=== PATIENT | male | born 1980 | race Caucasian/White ===

== ENCOUNTER 2024-11-08 04:22 | Inpatient (IN) | payer OTHER, SELFPAY ==
[2024-11-08] VITALS (31 sets, daily range): BP systolic 111–149; BP diastolic 75–108; PULSE 84–238; RESP 12–27; TEMP 36.6–37.4; O2SAT 94–99; BMI 30.5; BMI 30.4
--- NOTE | 2024-11-08 04:29 | EKG_ITS ---
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
--- NOTE | 2024-11-08 04:50 | PD.EDRME ---
Rapid Medical Screening Exam [facility] Arrival date/time: 11/08/24 04:22 Chief Complaint: Abdominal Pain Vital signs: Vital Signs Temperature 98 F 11/08/24 04:29 Pulse Rate 135 H 11/08/24 04:29 Respiratory Rate 18 11/08/24 04:29 Blood Pressure 146/93 H 11/08/24 04:29 Pulse Oximetry (%) 96 11/08/24 04:29 Oxygen Delivery Method Room Air 11/08/24 04:29 [facility] Narrative: 43-year-old male with a history of type 2 diabetes and pancreatitis in the past from alcohol abuse presents with a 6-day history of epigastric abdominal pain with nausea and vomiting. He has been compliant with his medications. He is on Ozempic. He has not drink alcohol for years. This pain feels very similar to when he had pancreatitis in the past. Patient denies other medical problems other than the possibility of hypertension in the past but currently does not take medication for hypertension.
--- NOTE | 2024-11-08 04:53 | EKG_ITS ---
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
--- NOTE | 2024-11-08 04:53 | XR_ITS ---
Examination: AP chest single view Technique one AP portable upright chest single view Date and time: November 08 thousand 25, 0503 hrs. Indications: Chest pain beginning 2 days ago. Findings: Normal heart size. Lungs are clear. The osseous structures are intact. Impression: No active disease.
[2024-11-08] MEDS: SODIUM CHLORIDE 0.9% 1000 ML 1,000 ML 999 ML IV ×2 (04:57→06:02)
[2024-11-08] MEDS: MORPHINE SULF INJ 4 MG/ML VIAL IVP (05:00)
[2024-11-08] MEDS: ONDANSETRON INJ 2 MG/ML INJ 2 ML 4 MG IVP ×4 (05:01→23:18)
[2024-11-08 05:19] LABS: Basophils # (Auto) 0.1 Thou/mm3 (0.0-0.2); Basophils % (Auto) 0 % (0-2.5); Eosinophils # (Auto) 0.0 Thou/mm3 (0.0-0.5); Eosinophils % (Auto) 0 % (0-10); Hematocrit 52.2 % (41.0-53.0); Hemoglobin 18.3 g/dL (13.5-16.0); Immature Granulocytes Auto 0.16 Thou/mm3 (0.00-0.00); Lymphocytes # (Auto) 0.6 Thou/mm3 (1.0-4.8); Lymphocytes % (Auto) 3 % (10-50); Mean Corpuscular HGB Conc 35.1 g/dl (31.0-37.0); Mean Corpuscular Hemoglobin 31.1 pg (25.0-35.0); Mean Corpuscular Volume 89 fL (80-100); Monocytes # (Auto) 1.1 Thou/mm3 (0.0-0.8); Monocytes % (Auto) 5 % (0-12); Neutrophils # (Auto) 19.8 Thou/mm3 (1.8-7.7); Neutrophils % (Auto) 91 % (37-80); Nucleated Red Blood Cell # 0.00 Thou/mm3 (0.00-0.00); Nucleated Red Blood Cell % 0 /100 WBC (0); Platelet Count 363 Thou/mm3 (140-440); RDW Standard Deviation 38.6 fL (35.1-43.9); Red Blood Count 5.89 Miln/mm3 (4.50-5.90); White Blood Count 21.7 Thou/mm3 (3.8-10.6)
[2024-11-08 05:22] LABS: Beta Hydroxybutyrate 6.2 mmol/L (<0.6)
[2024-11-08 05:47] LABS: Base Excess, Venous -16 (-3-3); O2 Saturation, Venous 73 % (96-97); PCO2, Venous 31 mmHg (36-56); PO2, Venous 45 mmHg (15-58); pH, Venous 7.18 (7.33-7.66)
[2024-11-08 05:55] LABS: Alanine Aminotransferase 24 U/L (10-49); Albumin, Serum 5.1 gm/dL (3.5-5.0); Albumin/Globulin Ratio 2.0 (1.2-2.2); Alkaline Phosphatase 129 U/L (46-116); Anion Gap 36 (7-16); Aspartate Amino Transferase 16 U/L (0-34); BUN/Creatinine Ratio 11 Ratio (12-20); Bilirubin,Total 1.4 mg/dL (0.3-1.2); Blood Urea Nitrogen 27 mg/dL (9-23); Calcium 10.9 mg/dL (8.3-10.6); Calcium (Corrected) 10.9 mg/dL (8.5-10.1); Chloride 83 mMol/L (98-107); Creatinine (Component) 2.4 mg/dL (0.6-1.3); Estimated Creatinine Clearance 48.5 mL/min (>60); Globulin 2.6 gm/dL (2.3-3.5); Lipase 21 U/L (12-53); Osmolality,Calculated 294 (275-295); Potassium 5.0 mMol/L (3.4-5.1); Sodium 129 mMol/L (136-145); Total Protein 7.7 gm/dL (5.7-8.2); eGFR 33 See Note
[2024-11-08 05:57] LABS: Glucose 631 mg/dL (74-106)
[2024-11-08 05:58] LABS: Carbon Dioxide < 10.0 mMol/L (20.0-31.0)
[2024-11-08 06:12] LABS: Collection Type, Urine Voided
--- NOTE | 2024-11-08 06:21 | XR_ITS ---
Examination: CT chest, without intravenous contrast. CT abdomen, without intravenous contrast. CT pelvis, without intravenous contrast. 2-D sagittal and coronal reconstructions. 3-D reconstructions. Date and time of exam:November 08, 2024 0806 hrs. Indications: Chest pain shortness of breath abdominal pain nausea vomiting beginning 3 days ago. CTDI vol (mgy) 12.2 DLP (MGycm)993 Technique: Multiple CT images, 3.0 mm slice thickness, obtained chest, abdomen, pelvis, with the high-resolution 64 slice scanner.. Sagittal and coronal 2-D reconstructions are obtained. 3-D reconstructions Low dose protocols were performed. One or more of the following dose reduction techniques were used; automated exposure control, adjustment of the mA and/or KV according to patient size, use of iterative reconstruction technique. Findings: No thoracic aortic aneurysm dilatation. Pulmonary artery segments are not enlarged. No paratracheal tracheobronchial or bronchopulmonary adenopathy. Small calcified granuloma in the left lower lobe. No pneumonia, pulmonary edema or pleural disease. Liver is mildly irregular in contour, no focal liver lesions Suspicious for gallstones. Spleen not enlarged. No peripancreatic edema No adrenal mass Mild renal scar formation, mild perinephric stranding 2 mm nonobstructing left renal calculus. Aorta normal size. 20 mm fat-containing umbilical hernia. Normal appendix No bowel obstruction or diverticulitis Bladder intact No prostatomegaly Mild osteopenia with mild chronic compression T12 Impression: No pneumonia, pulmonary edema or pleural disease Suspicious for primary hepatocellular disease. 2 mm nonobstructing left renal calculus. Normal appendix. No bowel obstruction diverticulitis or free air. Recommend hepatobiliary sonography to exclude gallstones
--- NOTE | 2024-11-08 06:22 | XR_ITS ---
Examination: Venous duplex lower extremity sonogram, bilateral. Date and time of exam: November 08, thousand 25, 0700 hrs. Indications: Left lower leg swelling and pain beginning yesterday. Technique: Multiple sonographic images of the deep venous system have been obtained. B-mode/2-D grayscale imaging of vascular structures and Doppler spectral analysis (waveforms) and color performed Both legs are examined. Findings: Deep venous systems do not demonstrate abnormal echogenicity. All visualized deep veins exhibit compressibility. All visualized deep veins exhibit augmentation. Impression: Negative for deep vein thrombosis
[2024-11-08 06:28] LABS: Lactate (Lactic Acid) 6.1 mMol/L (0.4-2.0)
[2024-11-08] MEDS: RINGERS LACTATED 1000 ML 1,000 ML 999 ML IV (06:29)
[2024-11-08] MEDS: RINGERS LACTATED 1000 ML 1,000 ML 500 ML IV ×2 (06:30→08:54)
[2024-11-08 06:31] LABS: Bilirubin,Urine Negative (Negative); Blood,Urine Negative (Negative); Clarity,Urine Clear (Clear/Hazy); Color,Urine Lt-Yellow (Lt Yel-Yel); Glucose, Urine 4+ (Negative); Hyaline Casts,Urine 4 /hpf (0-1); Ketones,Urine 4+ (Negative); Leukocyte Esterase,Urine Negative (Negative); Nitrite,Urine Negative (Negative); PH,Urine 5.5 (5.0-7.0); Protein,Urine Negative (Neg - Trace); RBC,Urine 3 /hpf (0-3); Specific Gravity,Urine 1.020 (1.001-1.035); Squamous Epithelial Cell,Urine < 1 /hpf (0-5); Urobilinogen,Urine Negative mg/dL (0.0-1.0); WBC,Urine < 1 /hpf (0-5)
[2024-11-08] MEDS: INSULIN REG 100 UNITS/100 ML 100 UNIT in PRE-MIXED 1 BAG 10.206 UNIT IV (06:32)
[2024-11-08] MEDS: POTASSIUM CHL 10 mEq IVPB 10 MEQ/100 ML BAG 50 MEQ IV (06:32)
--- NOTE | 2024-11-08 06:34 | PD.EDADDENDU ---
Emergency Room Addendum Addendum Narrative: Mr. Portillo is a 43-year-old male with past medical history of insulin-dependent type 2 diabetes mellitus, history of severe hypertriglyceridemia and necrotizing pancreatitis requiring plasmapheresis, acute kidney injury requiring temporary hemodialysis in the past (followed Dr. 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 Patient reports that he usually takes 1 mg of Ozempic every week but he is unsure if he had taken it twice this week, endorses epigastric pain however generalized abdominal tenderness noted, ordered CT abdomen pelvis. On exam left lower extremity slightly more swollen than right lower extremity, no history of any heart disease will obtain venous Doppler bilateral lower extremities. Patient's lab consistent with DKA, beta hydroxybutyrate elevated at 6.2, lactate elevated at 6.1. Patient received 2 L NS, 1 L LR, started on maintenance LR and insulin drip with DKA protocol. Patient received x 2 doses of Zofran 4 nausea/vomiting and x 1 morphine.
[2024-11-08] MEDS: ONDANSETRON INJ 2 MG/ML INJ 2 ML 4 MG IV (06:35)
[2024-11-08 06:37] LABS: Amphetamine/Methamp Scrn,U Negative (Negative); Barbiturate Screen,Urine Negative (Negative); Benzodiazepines Screen,Urine Negative (Negative); Benzoylecgonine Screen, Ur Negative (Negative); Fentanyl Screen,Urine Negative (Negative); Opiate Screen,Urine Positive (Negative); THC Screen,Urine Negative (Negative)
--- NOTE | 2024-11-08 06:44 | PD.EDABDPN ---
ED Abdominal Pain RME/HPI General Chief Complaint: Abdominal Pain Stated complaint: ABD PAIN Time seen by provider: 11/08/24 06:11 Arrival date/time: 11/08/24 04:22 Source: patient RME / HPI RME / HPI narrative: Mr. Portillo is a 43-year-old male with past medical history of insulin-dependent type 2 diabetes mellitus, history of severe hypertriglyceridemia and necrotizing pancreatitis requiring plasmapheresis, acute kidney injury requiring temporary hemodialysis in the past (followed Dr. Roper), dyslipidemia and hypertension who presented to [facility] emergency department 11/08/2024 nurse orthopaedic with a chief complaint of significant abdominal pain with nausea and vomiting, reports compliance with medication, on Ozempic and insulin. Patient reports that he usually takes 1 mg of Ozempic every week but he is unsure if he had taken it twice this week, endorses epigastric pain however generalized abdominal tenderness noted. Patient denies any blood in vomitus, denies any other complaints. Patient reports that his home medications only include insulin and Ozempic. Was on Lipitor in the past, used antihypertensive medication in the past as well. MD complaint: abdominal pain Onset (ago): day(s) (5-6) Consistency: constant Location: diffuse and epigastric Severity: severe Related Data Home Medications ?Medication ?Instructions ?Recorded ?Confirmed lisinopril 10 mg tablet 10 mg PO DAILY 01/26/18 11/08/24 semaglutide 1 mg/dose (4 mg/3 mL) 1 mg subcut QWEEK 11/08/24 11/08/24 subcutaneous pen injector (Ozempic) Held on 11/09/24. Instructions: Resume on 11/23/24. HOLD until follow up with PCP Previous Rx's ?Medication ?Instructions ?Recorded atenolol 25 mg tablet 25 mg PO QAM #30 tabs 09/11/16 insulin degludec 100 25 unit subcut HS #15 mL 11/09/24 unit-liraglutide 3.6 mg/mL(3 mL) subcutaneous pen insulin lispro 100 unit/mL 5 unit (0.05 mL) subcut TIDWMEAL 11/09/24 subcutaneous pen #15 mL insulin lispro 100 unit/mL 0 sliding scale dose subcut ACHS 11/09/24 subcutaneous solution (Humalog #3 vials U-100 Insulin) Allergies Allergy/AdvReac Type Severity Reaction Status Date / Time bee venom protein (honey bee) Allergy Mild Anaphylaxis Verified 11/08/24 04:23 strawberry Allergy Mild Anaphylaxis Verified 11/08/24 04:23 Review of Systems Review of Systems Systems Reviewed: All systems reviewed, normal except as documented Past Medical History Past Medical History CARDIAC: Positive Hypercholesterolemia and Hypertension; Negative Cardiac Disorders or Congestive Heart Failure RESPIRATORY: Negative Chronic Obstructive Pulmonary Disease (COPD) or Asthma GENITOURINARY: Positive Renal Disease and Dialysis (X9 months for acute renal failure; patient is NO LONGER ON DIALYSIS) ENDOCRINE: Positive Diabetes Mellitus Type 2; Negative Diabetes Mellitus Type 1 HEMATOLOGIC: Positive Blood Disorders (Lipidemia); Negative Sickle Cell Disease OTHER HISTORY: Positive Blood Transfusions Social History SMOKING STATUS: Never smoker Travel History EBOLA RISK: No ED Exam Narrative Physical exam: Physical Exam General: Awake and in mild acute distress. Conversational and non-toxic appearing. HEENT: Normocephalic, atraumatic, mucous membranes dry. Heart: Tachycardic, no murmurs. Lungs: Clear to auscultation with no wheezing or crackles. Abdomen: Soft, nondistended, epigastric and mid lower abdomen tender, positive bowel sounds. ?No guarding or rebound tenderness. Neurologic: Alert and oriented x3, no gross neurological deficit, and patient able to move all 4 extremities. Extremities: 1+ left lower extremity > right lower extremity Skin: No rash or ecchymoses. Course Quality Measures none Orders Category Date Time Status Blood glucose [Bedside Blood Glucose] NOW Care 11/08/24 04:29 Completed Flat Optical Element Maker STAT Care 11/08/24 06:14 Completed DKA Protocol QSHIFT Care 11/08/24 06:14 Completed EKG (ED ONLY) *Do not use* NOW Care 11/08/24 04:29 Completed EKG (ED ONLY) *Do not use* NOW Care 11/08/24 04:53 Completed Referral Registered Dietitian Routine Cons 11/08/24 06:[address] chest abdomen pelvis wo Stat Exams 11/08/24 06:21 Completed EKG (ED Only) Stat Exams 11/08/24 04:29 Draft EKG (ED Only) Stat Exams 11/08/24 04:53 Draft US venous doppler LE BI Routine Exams 11/08/24 06:22 Completed XR chest 1V portable Stat Exams 11/08/24 04:53 Completed Beta Hydroxybutyrate Stat Lab 11/08/24 04:56 Completed CBC Stat Lab 11/08/24 04:56 Completed CMP [Comprehensive Metabolic Panel] Stat Lab 11/08/24 04:56 Completed Drug Screen,Urine Stat Lab 11/08/24 06:00 Completed Glycohemoglobin w (eAG) Stat Lab 11/08/24 04:56 Completed Lactate (Lactic Acid) Stat Lab 11/08/24 05:40 Completed Lipase Stat Lab 11/08/24 04:56 Completed Lipid Panel Stat Lab 11/08/24 05:40 Completed Magnesium [Magnesium] Stat Lab 11/08/24 05:40 Completed Phosphorous Stat Lab 11/08/24 05:40 Completed UA [Urinalysis] Stat Lab 11/08/24 06:00 Completed VBG [Venous Blood Gas] Stat Lab 11/08/24 05:40 Completed Dextrose 5%-Lactated Ringers [D5-Lr] 1,000 ml Med 11/08/24 06:13 Discontinued Pot Chl Additive [KCl Additive] 40 meq IV 250 mls/hr Dextrose 5%-Lactated Ringers [D5-Lr] 1,000 ml Med 11/08/24 06:13 Discontinued IV 250 mls/hr Dextrose 50% Syr [D50w Syringe Abboject] Med 11/08/24 06:13 Discontinued 25 ml IV PRNMRX1 PRN KCL 20 mEq/L in D5-LR Med 11/08/24 06:13 Discontinued 20 meq in 1,000 ml IV 250 mls/hr Magnesium Sulfate 2 GM Ivpb [Magnesium Sulfate Ivpb] Med 11/08/24 06:13 Discontinued 2 gm in 50 ml IV 25 mls/hr Morphine* Inj Med 11/08/24 04:52 Discontinued 4 mg IVP X1 ONE Ondansetron Inj [Zofran Inj] Med 11/08/24 06:13 Discontinued 4 mg IV X1 ONE Ondansetron Inj [Zofran Inj] Med 11/08/24 04:52 Discontinued 4 mg IVP X1 ONE POT PHOS 15 mMol in NS 250 ML [Pot Phos 15 mMol in NS Med 11/08/24 06:13 Discontinued 250 ml] 15 mmol in 250 ml IV PRN POTASSIUM CHL 10 mEq IVPB [Kcl Ivpb] Med 11/08/24 06:13 Discontinued 10 meq in 100 ml IV 100 mls/hr POTASSIUM CHL 10 mEq IVPB [Kcl Ivpb] Med 11/08/24 06:13 Discontinued 10 meq in 100 ml IV PRN Pre-Mixed [Pre-mixed Bag] 1 bag Med 11/08/24 06:13 Discontinued Insulin Reg 100 Units/100 ml [Myxredlin] 100 unit IV 0.1 unit/kg/hr Ringers Lactated 1000 ml [Lactated Ringers] 1,000 ml Med 11/08/24 06:13 Discontinued Pot Chl Additive [KCl Additive] 20 meq IV 250 mls/hr Ringers Lactated 1000 ml [Lactated Ringers] 1,000 ml Med 11/08/24 06:13 Discontinued Pot Chl Additive [KCl Additive] 40 meq IV 250 mls/hr Ringers Lactated 1000 ml [Lactated Ringers] 1,000 ml Med 11/08/24 06:13 Discontinued IV 250 mls/hr Ringers Lactated 1000 ml [Lactated Ringers] 1,000 ml Med 11/08/24 06:13 Discontinued IV 999 mls/hr Ringers Lactated 1000 ml [Lactated Ringers] 1,000 ml Med 11/08/24 06:15 Discontinued IV Q2H Sodium Bicarb 8.4% SYR Med 11/08/24 06:13 Discontinued 50 ml IV Q4HR PRN Sodium Chloride 0.9% 1000 ml [Ns] 1,000 ml Med 11/08/24 04:52 Discontinued IV 999 mls/hr Sodium Chloride 0.9% 1000 ml [Ns] 1,000 ml Med 11/08/24 05:54 Discontinued IV 999 mls/hr Sodium Chloride 0.9% 250 ml [Ns] 250 ml Med 11/08/24 06:13 Discontinued Sod Phos Additive [NaPhos Additive] 15 mmol IV 62.5 mls/hr Vital Signs Vital signs: Vital Signs Temperature 98 F 11/08/24 04:29 Pulse Rate 135 H 11/08/24 04:29 Respiratory Rate 18 11/08/24 04:29 Blood Pressure 146/93 H 11/08/24 04:29 Pulse Oximetry (%) 96 11/08/24 04:29 Oxygen Delivery Method Room Air 11/08/24 04:29 Abdominal Pain MDM MDM Narrative MDM Narrative:: On exam left lower extremity slightly more swollen than right lower extremity, no history of any heart disease will obtain venous Doppler bilateral lower extremities. Patient's lab consistent with DKA, beta hydroxybutyrate elevated at 6.2, lactate elevated at 6.1. Patient received 2 L NS, 1 L LR, started on maintenance LR and insulin drip with DKA protocol. Patient received x 2 doses of Zofran 4 nausea/vomiting and x 1 morphine. will admit to icu. #DKA #High anion gap metabolic acidosis #Lactic acidosis, elevated beta hydroxybutyrate Patient's beta hydroxybutyrate 6.2, VBG pH 7.18, bicarb less than 10, blood glucose 631, lactate 6.1 Urine ketones positive -Started on insulin drip -patient received 3 L fluid bolus, started on maintenance fluid - DKA protocol - Consulted diesel engineer team for admission, patient accepted #Acute kidney injury BUN 27, creatinine 2.4, GFR 33 Likely prerenal, IV fluids per DKA protocol #Significant severe abdominal pain #Nausea and vomiting #Rule out acute pancreatitis Patient has epigastric pain, left upper quadrant pain as well, lipase within normal limits Ordered CT abdomen pelvis, diesel engineer team to follow #Dyslipidemia History of elevated triglycerides in the past Triglyceride 181, cholesterol 260, LDL 192, HDL 32 - Insulin drip for now - Management per ICU team #Leukocytosis #Elevated hemoglobin Leukocytosis likely reactive Hemoglobin likely elevated secondary to hemoconcentration #LE swelling -u/s w/o evidence of DVT Disposition: Admitted to intensive care unit for management of DKA Case discussed with Attending Physician Dr. Marta Hawley MD Internal Medicine PGY-2 Disclaimer: This note was dictated by speech recognition. Minor errors in setter cold rolling machine may be present due to voice recognition software. Patient data External records reviewed:: [facility] previous records Clinical information provided by:: patient Social determinants that could affect healthcare access:: other (specify) (Diabetic education) Patient has the following chronic illnesses:: insulin-dependent type 2 diabetes mellitus, history of severe hypertriglyceridemia and necrotizing pancreatitis requiring plasmapheresis, acute kidney injury requiring temporary hemodialysis in the past (followed Dr. Roper), dyslipidemia and hypertension How is presenting disease/condition affected by chronic disease/condition?: caused by Evaluation data The following diagnostics were reviewed and interpreted by me:: lab results, radiology exam(s) and EKG tracing(s) Lab and/or radiology exams considered but not ordered:: CT abdomen pelvis pending read, venous Doppler pending read Interpretation Summary: EKG showed sinus tachycardia Labs significant for DKA, beta hydroxybutyrate 6.2 Lipid panel ordered due to history of hypertriglyceridemia, triglyceride 181, cholesterol 260 Lactic acid 6.1 A1c 7.0, glucose 631 DANILO BUN 27, creatinine 2.4, bicarb less than 10 VBG pH 7.18 Medications / Prescriptions Medications or Prescriptions considered but not ordered:: Admitted to ICU Medication administrations:: Medication Administration History Discontinued Medications Acetaminophen (Acetaminophen 325 Mg Tablet) 650 mg PO Q6H PRN PRN Reason: PAIN SCALE 1-3 (mild Stop: 12/08/24 07:04 Dextrose (Dextrose 50%-Water Inj 50 Ml Syringe) 25 ml IV PRNMRX1 PRN PRN Reason: Blood Sugar - Low Dextrose (Dextrose 50%-Water Inj 50 Ml Syringe) 25 ml IV Q15MIN PRN PRN Reason: BG 50-70 responsive npo pt Stop: 12/08/24 22:44 Dextrose (Dextrose 50%-Water Inj 50 Ml Syringe) 50 ml IV Q15MIN PRN PRN Reason: BG <50 OR BG <70 & pt unresponsive Stop: 12/08/24 22:44 Glucagon (Glucagon Inj 1 Mg Vial) 1 mg IM Q15MIN PRN PRN Reason: BG <70, and no IV access Heparin Sodium (Porcine) (Heparin Sod Inj 5000 Unit/Ml Vial) 5,000 unit SC Q8HR JENNYFER Stop: 11/22/24 07:14 Last Admin: 11/09/24 05:36 Dose: 5,000 unit Documented By: ANNA Co-signed By: KIANA Admin: 11/08/24 21:53 Dose: 5,000 unit Documented By: CRISTIANA Co-signed By: Admin: 11/08/24 13:27 Dose: Not Given Documented By: LISA Non-Admin Reason: Patient Refused Admin: 11/08/24 08:50 Dose: 5,000 unit Documented By: EF Co-signed By: VL Sodium Chloride (Ns) 1,000 mls @ 999 mls/hr IV .Q1H1M ONE Stop: 11/08/24 05:52 Last Infusion: 11/08/24 06:04 Dose: Infused Documented By: Admin: 11/08/24 04:57 Dose: 999 mls/hr Documented By: EE Sodium Chloride (Ns) 1,000 mls @ 999 mls/hr IV .Q1H1M ONE Stop: 11/08/24 06:54 Last Infusion: 11/08/24 07:03 Dose: Infused Documented By: Admin: 11/08/24 06:02 Dose: 999 mls/hr Documented By: DORINDA Lactated Ringer's (Lactated Ringers) 1,000 mls @ 999 mls/hr IV .Q1H1M ONE Stop: 11/08/24 07:13 Last Infusion: 11/08/24 07:30 Dose: Infused Documented By: Admin: 11/08/24 06:29 Dose: 999 mls/hr Documented By: DAVION Potassium Chloride (Kcl Ivpb) 10 meq in 100 mls @ 100 mls/hr IV .Q1H PRN PRN Reason: IF POTASSIUM LESS THAN 3.3 Stop: 12/08/24 06:12 Magnesium Sulfate (Magnesium Sulfate Ivpb) 2 gm in 50 mls @ 25 mls/hr IV .Q2H PRN PRN Reason: PER DKA PROTOCOL Stop: 12/08/24 06:12 Insulin Human Regular 100 unit (/ IV Miscellaneous Supplies) 100 mls @ 10.206 mls/hr IV .Q9H48M PRN; Protocol PRN Reason: PER PROTOCOL Stop: 12/08/24 06:12 Last Titration: 11/09/24 00:45 Dose: 0 unit/kg/hr, 0 mls/hr Documented By: CRISTIANA Co-signed By: AD Titration: 11/09/24 00:00 Dose: 0.025 unit/kg/hr, 2.551 mls/hr Documented By: CRISTIANA Co-signed By: AD Admin: 11/08/24 23:03 Dose: 0.025 unit/kg/hr, 2.551 mls/hr Documented By: BB Co-signed By: AD Titration: 11/08/24 23:00 Dose: Infused Documented By: BB Co-signed By: AD Titration: 11/08/24 22:00 Dose: 0.025 unit/kg/hr, 2.551 mls/hr Documented By: BB Co-signed By: AD Titration: 11/08/24 21:00 Dose: 0.025 unit/kg/hr, 2.551 mls/hr Documented By: BB Co-signed By: AD Titration: 11/08/24 20:00 Dose: 0.025 unit/kg/hr, 2.551 mls/hr Documented By: BB Co-signed By: PAU Titration: 11/08/24 19:00 Dose: 0.025 unit/kg/hr, 2.551 mls/hr Documented By: BB Co-signed By: PAU Titration: 11/08/24 18:00 Dose: 0.025 unit/kg/hr, 2.551 mls/hr Documented By: LISA Co-signed By: ANNA(2) Titration: 11/08/24 17:00 Dose: 0.05 unit/kg/hr, 5.103 mls/hr Documented By: ZAlexander Co-signed By: ANAN(2) Titration: 11/08/24 16:00 Dose: 0.05 unit/kg/hr, 5.103 mls/hr Documented By: LISA Co-signed By: ANNA(2) Titration: 11/08/24 15:00 Dose: 0.05 unit/kg/hr, 5.103 mls/hr Documented By: LISA Co-signed By: ANNA(2) Titration: 11/08/24 14:00 Dose: 0.05 unit/kg/hr, 5.103 mls/hr Documented By: ZAlexander Co-signed By: ANNA(2) Titration: 11/08/24 13:00 Dose: 0.025 unit/kg/hr, 2.551 mls/hr Documented By: ZAlexander Co-signed By: GORDY Titration: 11/08/24 12:00 Dose: 0.05 unit/kg/hr, 5.103 mls/hr Documented By: ZAlexander Co-signed By: ANNA(2) Titration: 11/08/24 11:00 Dose: 0.1 unit/kg/hr, 10.206 mls/hr Documented By: ZAlexander Co-signed By: VIVEK Titration: 11/08/24 10:06 Dose: 0.1 unit/kg/hr, 10.206 mls/hr Documented By: ZAlexander Co-signed By: VIVEK Admin: 11/08/24 06:32 Dose: 0.1 unit/kg/hr, 10.206 mls/hr Documented By: WO Co-signed By: CB Dextrose/Lactated Ringer's (D5-Lr) 1,000 mls @ 250 mls/hr IV .Q4H PRN PRN Reason: PER PROTOCOL Stop: 12/08/24 06:12 Lactated Ringer's (Lactated Ringers) 1,000 mls @ 250 mls/hr IV .Q4H PRN PRN Reason: PER PROTOCOL Stop: 11/09/24 06:12 Last Infusion: 11/08/24 11:29 Dose: 0 mls/hr Documented By: Admin: 11/08/24 10:45 Dose: 250 mls/hr Documented By: LISA Potassium Chloride 20 meq/ (Lactated Ringer's) 1,010 mls @ 250 mls/hr IV .Q4H3M PRN PRN Reason: K LEVEL 3.3 TO 5.3mM/L Stop: 12/08/24 06:12 Last Infusion: 11/08/24 13:19 Dose: 0 mls/hr Documented By: Admin: 11/08/24 11:29 Dose: 250 mls/hr Documented By: LISA Potassium Chloride 40 meq/ (Lactated Ringer's) 1,020 mls @ 250 mls/hr IV .Q4H5M PRN PRN Reason: K LEVEL < 3.3 mM/L Stop: 12/08/24 06:12 Potassium Chloride 40 meq/ (Dextrose/Lactated Ringer's) 1,020 mls @ 250 mls/hr IV .Q4H5M PRN PRN Reason: K LEVEL < 3.3mM/L Stop: 12/08/24 06:12 Potassium Cl/Dextrose/Lact Ringer's (Kcl 20 Meq/L In D5-Lr) 20 meq in 1,000 mls @ 250 mls/hr IV .Q4H PRN PRN Reason: K LEVEL 3.3 TO 5.3 mM/L Potassium Chloride (Kcl Ivpb) 10 meq in 100 mls @ 50 mls/hr IV PRN PRN PRN Reason: K LEVEL 3.3 to 5.3 & BG > 200 Stop: 12/08/24 06:12 Last Infusion: 11/08/24 08:32 Dose: Infused Documented By: Admin: 11/08/24 06:32 Dose: 50 mls/hr Documented By: WO Potassium Phosphate (Pot Phos 15 Mmol In Ns 250 Ml) 15 mmol in 250 mls @ 62.5 mls/hr IV PRN PRN PRN Reason: Phosphate <= 1mg/dL Stop: 12/08/24 06:12 Sodium Phosphate 15 mmol/ (Sodium Chloride) 255 mls @ 62.5 mls/hr IV .Q4H5M PRN PRN Reason: Phosphate <= 1mg/dL and K> than 5.3 Stop: 12/08/24 06:12 Lactated Ringer's (Lactated Ringers) 1,000 mls @ 500 mls/hr IV Q2H JENNYFER Stop: 11/08/24 10:14 Last Admin: 11/08/24 08:54 Dose: 500 mls/hr Documented By: Infusion: 11/08/24 08:30 Dose: Infused Documented By: Admin: 11/08/24 06:30 Dose: 500 mls/hr Documented By: DAVION Potassium Chloride 20 meq/ (Dextrose/Lactated Ringer's) 1,010 mls @ 250 mls/hr IV .Q4H3M PRN PRN Reason: K LEVEL 3.3 TO 5.3 mM/L Stop: 12/08/24 12:06 Last Admin: 11/08/24 23:17 Dose: 250 mls/hr Documented By: Infusion: 11/08/24 22:55 Dose: Infused Documented By: Admin: 11/08/24 18:52 Dose: 250 mls/hr Documented By: Infusion: 11/08/24 17:22 Dose: Infused Documented By: Admin: 11/08/24 13:19 Dose: 250 mls/hr Documented By: LISA Insulin Degludec (Insulin Degludec 5 Unit/0.05 Ml (Per 5 Units)) 20 unit SC [facility] Stop: 12/08/24 22:44 Last Admin: 11/08/24 23:07 Dose: 20 unit Documented By: CRISTIANA Co-signed By: Insulin Human Lispro (Insulin Lispro (Admelog) 1 Unit/0.01 Ml Unit) 0 unit SC [facility]; Protocol Stop: 12/09/24 07:29 Last Admin: 11/09/24 12:02 Dose: 2 unit Documented By: PP Co-signed By: Admin: 11/09/24 08:06 Dose: 3 unit Documented By: PP Co-signed By: KRYSTINA Insulin Human Lispro (Insulin Lispro (Admelog) 1 Unit/0.01 Ml Unit) 4 unit SC [facility] Stop: 12/09/24 07:59 Last Admin: 11/09/24 12:02 Dose: 4 unit Documented By: PP Co-signed By: Admin: 11/09/24 08:05 Dose: 4 unit Documented By: PP Co-signed By: VEROL3 Morphine Sulfate (Morphine Sulf Inj 4 Mg/Ml Vial) 4 mg IVP X1 ONE Stop: 11/08/24 04:53 Last Admin: 11/08/24 05:00 Dose: 4 mg Documented By: EE Morphine Sulfate (Morphine Sulf Inj 4 Mg/Ml Vial) 2 mg IVP Q2H PRN PRN Reason: PAIN SCALE 7-10 (Severe Stop: 11/13/24 07:04 Last Admin: 11/08/24 08:42 Dose: 2 mg Documented By: HOLDEN Ondansetron HCl (Ondansetron Inj 2 Mg/Ml Inj 2 Ml) 4 mg IVP X1 ONE; Protocol Stop: 11/08/24 04:53 Last Admin: 11/08/24 05:01 Dose: 4 mg Documented By: SWETHA Ondansetron HCl (Ondansetron Inj 2 Mg/Ml Inj 2 Ml) 4 mg IV X1 ONE; Protocol Stop: 11/08/24 06:14 Last Admin: 11/08/24 06:35 Dose: 4 mg Documented By: DAVION Ondansetron HCl (Ondansetron Inj 2 Mg/Ml Inj 2 Ml) 4 mg IVP Q6H PRN; Protocol PRN Reason: NAUSEA OR VOMITING Stop: 12/08/24 07:04 Last Admin: 11/09/24 05:33 Dose: 4 mg Documented By: Admin: 11/08/24 23:18 Dose: 4 mg Documented By: Admin: 11/08/24 17:01 Dose: 4 mg Documented By: Admin: 11/08/24 10:19 Dose: 4 mg Documented By: LISA Oxycodone/Acetaminophen (Oxycodone/Apap 5/325 Tablet) 1 tab PO Q6H PRN PRN Reason: PAIN SCALE 4-6 (Moderate Stop: 11/13/24 07:04 Last Admin: 11/09/24 05:36 Dose: 1 tab Documented By: Admin: 11/08/24 23:17 Dose: 1 tab Documented By: Admin: 11/08/24 17:03 Dose: 1 tab Documented By: Admin: 11/08/24 10:29 Dose: 1 tab Documented By: LISA Pantoprazole Sodium (Pantoprazole Inj 40 Mg Vial) 40 mg IVP QDAY JENNYFER Stop: 12/08/24 11:14 Last Admin: 11/09/24 08:04 Dose: 40 mg Documented By: Admin: 11/08/24 11:33 Dose: 40 mg Documented By: LISA Potassium Phos/Sodium Phos ([facility]1983 Mbdb 1 Packet (1.5 Gm)) 2 packet PO X1 ONE Stop: 11/09/24 11:17 Last Admin: 11/09/24 11:34 Dose: 2 packet Documented By: PP Sodium Bicarbonate (Sodium Bicarb Inj 8.4% Syr 50 Ml Syringe) 50 ml IV Q4HR PRN PRN Reason: For ph <= to 7.0 Stop: 12/08/24 06:12 As Above Consultations Consultation(s) initiated? (list below): Yes Consultation #1 (Physician, Specialty, Details): ICU Time: 06:45 Diagnosis Differential diagnosis abdominal pain: calculus of kidney and pancreatitis Most likely diagnosis given after review of the tests above:: Nausea vomiting secondary to DKA and small renal calculi Admission Indicated Admission indicated?: indicated Admission Request Was there a request for admission?: Yes Admission Attestation Admission request attestation: Discussed case with [] from Hospitalist service regarding admission. Discussed patients ED course, exam findings, labs, and radiology results. The Hospitalist [agrees,declines] to accept the patient for admission. Disposition Plan Disposition Plan: Admit (Intensive care unit) Critical Care Time Critical Care Time Critical Care Time: Yes Total Critical Care Time (min.): 60 Attestation: I spent 60 minutes of critical care time with this patient not including reportable procedures. There was an acute impairment of an organ system with a high probability of imminent or life threatening deterioration in the patient's condition. Interventions and changes required in the course of therapy are located in the chart. Time involved was spent in direct patient care, reviewing ancillary data, old records, consulting with decision makers, EMS, other doctors, giving orders and documenting. Discharge Plan Plan Patient Disposition: Admit Acute Care w/in Hospital Patient condition on transfer: Stable Problem List Clinical Impression: Diabetic keto-acidosis Patient/Caregiver Discharge Instructions Discharge Activity: as per physical therapy
[2024-11-08 06:45] LABS: Cardiac Risk Estimate 8.1 RATIO (4.0-6.7); Cholesterol 260 mg/dL (132-200); HDL Cholesterol 32 mg/dL (40-60); LDL Cholesterol,Calculated 192 mg/dL (0-130); Magnesium 2.0 mg/dL (1.6-2.6); Phosphorous 9.1 mg/dL (2.4-5.1); Triglycerides 181 mg/dL (30-150)
[2024-11-08 06:45] LABS: Glucose Estimated Average 154 mg/dL (80-131); Hemoglobin A1C 7.0 % Hgb (4.8-6.0)
--- NOTE | 2024-11-08 07:30 | PD.RESHP ---
Documentation for date of: 11/08/24 Exam Vital Signs Temp Pulse Resp BP Pulse Ox O2 Del Method 99.3 F 151 H 24 H 149/88 H 96 Room Air 11/08/24 06:11 11/08/24 06:42 11/08/24 06:11 11/08/24 06:11 11/08/24 06:11 11/08/24 06:11 Results: Labs 11/08/24 04:56 11/08/24 04:56 Labs: Short CBC 11/08/24 Range/Units 04:56 WBC 21.7 H (3.8-10.6) Thou/mm3 Hgb 18.3 H* (13.5-16.0) g/dL Hct 52.2 (41.0-53.0) % Plt Count 363 (140-440) Thou/mm3 BMP 11/08/24 04:56 Sodium 129 L Potassium 5.0 Chloride 83 L Carbon Dioxide < 10.0 L* BUN 27 H Creatinine 2.4 H Glucose 631 H* Calcium 10.9 H Liver Function 11/08/24 Range/Units 04:56 Total Bilirubin 1.4 H (0.3-1.2) mg/dL AST 16 (0-34) U/L ALT 24 (10-49) U/L Alkaline Phosphatase 129 H (46-116) U/L Albumin 5.1 H (3.5-5.0) gm/dL Urine 11/08/24 Range/Units 06:00 Urine Color Lt-Yellow (Lt Yel-Yel) Urine Clarity Clear (Clear/Hazy) Urine pH 5.5 (5.0-7.0) Ur Specific [place] 1.020 (1.001-1.035) Urine Protein Negative (Neg - Trace) Urine Glucose (UA) 4+ A (Negative) ABG Interpretation ABG results: 11/08/24 05:40 VBG pH 7.18 L VBG pCO2 31 L VBG pO2 45 VBG Base Excess -16 L Medications Home Medications and Allergies Home Medications ?Medication ?Instructions ?Recorded ?Confirmed ?Type lisinopril 10 mg tablet 10 mg PO DAILY 01/26/18 01/26/18 History Allergies Allergy/AdvReac Type Severity Reaction Status Date / Time bee venom protein (honey bee) Allergy Mild Anaphylaxis Verified 11/08/24 04:23 strawberry Allergy Mild Anaphylaxis Verified 11/08/24 04:23 Visit Medications Acetaminophen (Acetaminophen 325 Mg Tablet) 650 mg PO Q6H PRN PRN Reason: PAIN SCALE 1-3 (mild Stop: 12/08/24 07:04 Dextrose (Dextrose 50%-Water Inj 50 Ml Syringe) 25 ml IV PRNMRX1 PRN PRN Reason: Blood Sugar - Low Heparin Sodium (Porcine) (Heparin Sod Inj 5000 Unit/Ml Vial) 5,000 unit SC Q8HR JENNYFER Stop: 11/22/24 07:14 Potassium Chloride (Kcl Ivpb) 10 meq in 100 mls @ 100 mls/hr IV .Q1H PRN PRN Reason: IF POTASSIUM LESS THAN 3.3 Stop: 12/08/24 06:12 Magnesium Sulfate (Magnesium Sulfate Ivpb) 2 gm in 50 mls @ 25 mls/hr IV .Q2H PRN PRN Reason: PER DKA PROTOCOL Stop: 12/08/24 06:12 Insulin Human Regular 100 unit (/ IV Miscellaneous Supplies) 100 mls @ 10.206 mls/hr IV .Q9H48M PRN; Protocol PRN Reason: PER PROTOCOL Stop: 12/08/24 06:12 Last Admin: 11/08/24 06:32 Dose: 0.1 unit/kg/hr, 10.206 mls/hr Dextrose/Lactated Ringer's (D5-Lr) 1,000 mls @ 250 mls/hr IV .Q4H PRN PRN Reason: PER PROTOCOL Stop: 12/08/24 06:12 Lactated Ringer's (Lactated Ringers) 1,000 mls @ 250 mls/hr IV .Q4H PRN PRN Reason: PER PROTOCOL Stop: 11/09/24 06:12 Potassium Chloride 20 meq/ (Lactated Ringer's) 1,010 mls @ 250 mls/hr IV .Q4H3M PRN PRN Reason: K LEVEL 3.3 TO 5.3mM/L Stop: 12/08/24 06:12 Potassium Chloride 40 meq/ (Lactated Ringer's) 1,020 mls @ 250 mls/hr IV .Q4H5M PRN PRN Reason: K LEVEL < 3.3 mM/L Stop: 12/08/24 06:12 Potassium Chloride 40 meq/ (Dextrose/Lactated Ringer's) 1,020 mls @ 250 mls/hr IV .Q4H5M PRN PRN Reason: K LEVEL < 3.3mM/L Stop: 12/08/24 06:12 Potassium Cl/Dextrose/Lact Ringer's (Kcl 20 Meq/L In D5-Lr) 20 meq in 1,000 mls @ 250 mls/hr IV .Q4H PRN PRN Reason: K LEVEL 3.3 TO 5.3 mM/L Potassium Chloride (Kcl Ivpb) 10 meq in 100 mls @ 50 mls/hr IV PRN PRN PRN Reason: K LEVEL 3.3 to 5.3 & BG > 200 Stop: 12/08/24 06:12 Last Admin: 11/08/24 06:32 Dose: 50 mls/hr Potassium Phosphate (Pot Phos 15 Mmol In Ns 250 Ml) 15 mmol in 250 mls @ 62.5 mls/hr IV PRN PRN PRN Reason: Phosphate <= 1mg/dL Stop: 12/08/24 06:12 Sodium Phosphate 15 mmol/ (Sodium Chloride) 255 mls @ 62.5 mls/hr IV .Q4H5M PRN PRN Reason: Phosphate <= 1mg/dL and K> than 5.3 Stop: 12/08/24 06:12 Lactated Ringer's (Lactated Ringers) 1,000 mls @ 500 mls/hr IV Q2H JENNYFER Stop: 11/08/24 10:14 Last Admin: 11/08/24 06:30 Dose: 500 mls/hr Morphine Sulfate (Morphine Sulf Inj 4 Mg/Ml Vial) 2 mg IVP Q2H PRN PRN Reason: PAIN SCALE 7-10 (Severe Stop: 11/13/24 07:04 Ondansetron HCl (Ondansetron Inj 2 Mg/Ml Inj 2 Ml) 4 mg IVP Q6H PRN; Protocol PRN Reason: NAUSEA OR VOMITING Stop: 12/08/24 07:04 Oxycodone/Acetaminophen (Oxycodone/Apap 5/325 Tablet) 1 tab PO Q6H PRN PRN Reason: PAIN SCALE 4-6 (Moderate Stop: 11/13/24 07:04 Sodium Bicarbonate (Sodium Bicarb Inj 8.4% Syr 50 Ml Syringe) 50 ml IV Q4HR PRN PRN Reason: For ph <= to 7.0 Stop: 12/08/24 06:12 Discontinued Medications Sodium Chloride (Ns) 1,000 mls @ 999 mls/hr IV .Q1H1M ONE Stop: 11/08/24 05:52 Last Infusion: 11/08/24 06:04 Dose: Infused Sodium Chloride (Ns) 1,000 mls @ 999 mls/hr IV .Q1H1M ONE Stop: 11/08/24 06:54 Last Admin: 11/08/24 06:02 Dose: 999 mls/hr Lactated Ringer's (Lactated Ringers) 1,000 mls @ 999 mls/hr IV .Q1H1M ONE Stop: 11/08/24 07:13 Last Admin: 11/08/24 06:29 Dose: 999 mls/hr Morphine Sulfate (Morphine Sulf Inj 4 Mg/Ml Vial) 4 mg IVP X1 ONE Stop: 11/08/24 04:53 Last Admin: 11/08/24 05:00 Dose: 4 mg Ondansetron HCl (Ondansetron Inj 2 Mg/Ml Inj 2 Ml) 4 mg IVP X1 ONE; Protocol Stop: 11/08/24 04:53 Last Admin: 11/08/24 05:01 Dose: 4 mg Ondansetron HCl (Ondansetron Inj 2 Mg/Ml Inj 2 Ml) 4 mg IV X1 ONE; Protocol Stop: 11/08/24 06:14 Last Admin: 11/08/24 06:35 Dose: 4 mg
[2024-11-08 08:39] LABS: INR 1.1 (0.9-1.3); Partial Thromboplastin Time 24.7 Seconds (22.0-36.0); Prothrombin Time 12.0 Seconds (9.0-12.2)
[2024-11-08] MEDS: MORPHINE SULF INJ 4 MG/ML VIAL 2 MG IVP (08:42)
[2024-11-08] MEDS: HEPARIN SOD INJ 5000 UNIT/ML VIAL SC ×2 (08:50→21:53)
[2024-11-08 09:24] LABS: Reflex Lactate? Y
[2024-11-08 10:20] LABS: Base Excess, Venous -11 (-3-3); Lactate (Lactic Acid) 2.6 mMol/L (0.4-2.0); O2 Saturation, Venous 86 % (96-97); PCO2, Venous 22 mmHg (36-56); PO2, Venous 44 mmHg (15-58); pH, Venous 7.36 (7.33-7.66)
[2024-11-08] MEDS: RINGERS LACTATED 1000 ML 1,000 ML 250 ML IV (10:45)
[2024-11-08 10:53] LABS: Albumin, Serum 4.3 gm/dL (3.5-5.0); Anion Gap 24 (7-16); BUN/Creatinine Ratio 18 Ratio (12-20); Blood Urea Nitrogen 34 mg/dL (9-23); Calcium 9.6 mg/dL (8.3-10.6); Calcium (Corrected) 9.6 mg/dL (8.5-10.1); Carbon Dioxide 15.3 mMol/L (20.0-31.0); Chloride 98 mMol/L (98-107); Creatinine (Component) 1.9 mg/dL (0.6-1.3); Estimated Creatinine Clearance 61.3 mL/min (>60); Glucose 310 mg/dL (74-106); Magnesium 2.0 mg/dL (1.6-2.6); Osmolality,Calculated 293 (275-295); Phosphorous 3.0 mg/dL (2.4-5.1); Potassium 4.7 mMol/L (3.4-5.1); Sodium 137 mMol/L (136-145); eGFR 44 See Note
[2024-11-08] MEDS: POT CHL ADDITIVE 20 MEQ in RINGERS LACTATED 1000 ML 1,000 ML 250 MEQ IV (11:29)
[2024-11-08 12:53] LABS: Base Excess, Venous -4 (-3-3); O2 Saturation, Venous 86 % (96-97); PCO2, Venous 31 mmHg (36-56); PO2, Venous 47 mmHg (15-58); pH, Venous 7.40 (7.33-7.66)
[2024-11-08 12:54] LABS: Lactate (Lactic Acid) 1.9 mMol/L (0.4-2.0)
[2024-11-08 13:08] LABS: Anion Gap 17 (7-16); Calcium 9.6 mg/dL (8.3-10.6); Carbon Dioxide 19.6 mMol/L (20.0-31.0); Chloride 101 mMol/L (98-107); Potassium 4.6 mMol/L (3.4-5.1); Sodium 138 mMol/L (136-145)
[2024-11-08 13:12] LABS: Albumin, Serum 4.1 gm/dL (3.5-5.0); BUN/Creatinine Ratio 13 Ratio (12-20); Blood Urea Nitrogen 21 mg/dL (9-23); Calcium (Corrected) 9.6 mg/dL (8.5-10.1); Creatinine (Component) 1.6 mg/dL (0.6-1.3); Estimated Creatinine Clearance 72.8 mL/min (>60); Glucose 173 mg/dL (74-106); Magnesium 1.9 mg/dL (1.6-2.6); Osmolality,Calculated 282 (275-295); Phosphorous 1.7 mg/dL (2.4-5.1); eGFR 54 See Note
[2024-11-08 13:16] LABS: Reflex Lactate? Y
[2024-11-08] MEDS: POT CHL ADDITIVE 20 MEQ in DEXTROSE 5%-LACTATED RINGERS 1,000 ML 250 MEQ IV ×3 (13:19→23:17)
--- NOTE | 2024-11-08 15:52 | PD.RESHP ---
Documentation for date of: 11/08/24 HPI History of Present Illness History of present illness: Bandar Pyle is a 43-year-old male with past medical history of insulin-dependent type 2 diabetes mellitus, history of severe hypertriglyceridemia (reported to be familial) and necrotizing pancreatitis requiring plasmapheresis, acute kidney injury requiring temporary hemodialysis in the past (followed Dr. Roper), dyslipidemia, and hypertension who presented to [facility] ED in the applications administrator of 11/08/2024 with a chief complaint of significant abdominal pain with nausea and vomiting. His current symptoms began after 5 PM on Sunday where he reports vomiting bile after every half hour which co-occurred with the onset of his significant and ongoing epigastric abdominal pain. Patient thinks his current presentation could be due to him possibly having taken an additional dose of Ozempic on accident. According to him, he has not eaten food since Sunday and that his last BM was 2 days ago (productive of normal, brown stool). Of note, patient has history of recurrent episodes of pancreatitis with eventual development of necrotizing pancreatitis 9 years ago requiring hospitalization that led him to be put in a medically induced coma. At that time, he also experienced kidney failure and became diabetic. He says that what convinced him finally to seek medical care at the hospital was because the pain he felt seemed similar to the pain he experienced during his previous episodes of pancreatitis. Currently, he reports that the epigastric pain is a 4/10 (after having received morphine). In the ED, vitals showed: BP 146/93 HR 135 RR 18 Temp 98 SpO2 96% on room air ED Course: CBC showed WBC 21.7 and Hgb 18.3 but was otherwise WNL. Coagulation panel was WNL. VBG showed acidotic pH 7.18, pCO2 31, pO2 45, O2 saturation 73%. CMP showed sodium 129, potassium 5.0, chloride 83, critically low carbon dioxide less than 10.0, high anion gap 36, BUN 27, creatinine 2.4, eGFR 33, blood glucose 631, hemoglobin A1c 7.0, lactic acid 6.1, corrected calcium 10.9, phosphorus 9.1, triglycerides 181, cholesterol 260, lipase 21, and beta-hydroxybutyrate/acetoacetate 6.2. UA showed 4+ glucose and ketones. Urine drug screen was positive for opiates (patient received morphine in the ED) and negative for all else. Imaging: EKG showed sinus tachycardia with short DE interval and tall T waves suggesting hyperkalemia. Chest x-ray was unremarkable. CT CAP showed findings suspicious for primary hepatocellular disease and 2 mm nonobstructing left renal calculus but was otherwise negative. Venous Doppler study was negative for deep vein thrombosis. In the ED, patient received 2 L NS, 1 L LR, started on maintenance LR and insulin drip with DKA protocol. Patient received x 2 doses of Zofran 4 nausea/vomiting and x 1 morphine. Patient was admitted to the ICU for work-up and management of DKA (with associated high anion gap metabolic acidosis and DANILO) requiring insulin drip. Review of Systems Review of Systems Narrative Review of Systems: General: Denies fevers or chills. HEENT: Endorses headache and sore throat (from vomiting). Denies congestion. Heart: Endorses palpitations. Denies chest pain. Lungs: Endorses shortness of breath. Denies cough. Abdomen: Endorses nausea, vomiting, and abdominal pain (particularly around the epigastric and umbilical areas). Denies constipation, diarrhea, or blood in stool Genitourinary: Denies frequency, urgency, dysuria, or hematuria Neurology: Denies any changes in vision, weakness or difficulty speaking Review of systems otherwise negative except what is mentioned above. Exam Vital Signs Temp Pulse Resp BP Pulse Ox O2 Del Method 98.3 F 108 H 27 H 116/78 97 Room Air 11/08/24 12:00 11/08/24 14:11/08/24 14:11/08/24 14:00 11/08/24 14:11/08/24 08:44 Narrative Exam General: Awake and in no acute distress. Conversational and non-toxic appearing. HEENT: Normocephalic, atraumatic, mucous membranes dry. Heart: Tachycardic, no murmurs. Lungs: Clear to auscultation with no wheezing or crackles. Abdomen: Soft, nondistended, epigastric and mid lower abdomen tender, positive bowel sounds. ?No guarding or rebound tenderness. Neurologic: Alert and oriented x3, no gross neurological deficit, and patient able to move all 4 extremities. Extremities: 1+ left lower extremity > right lower extremity Skin: No rash or ecchymoses. Results: Labs 11/09/24 08:05 11/09/24 08:05 Labs: Short CBC 11/08/24 Range/Units 04:56 WBC 21.7 H (3.8-10.6) Thou/mm3 Hgb 18.3 H* (13.5-16.0) g/dL Hct 52.2 (41.0-53.0) % Plt Count 363 (140-440) Thou/mm3 BMP 11/08/24 11/08/24 11/08/24 04:56 10:02 12:42 Sodium 129 L 137 138 Potassium 5.0 4.7 4.6 Chloride 83 L 98 101 Carbon Dioxide < 10.0 L* 15.3 L 19.6 L BUN 27 H 34 H 21 Creatinine 2.4 H 1.9 H D 1.6 H Glucose 631 H* 310 H D 173 H D Calcium 10.9 H 9.6 9.6 Liver Function 11/08/24 11/08/24 11/08/24 Range/Units 04:56 10:02 12:42 Total Bilirubin 1.4 H (0.3-1.2) mg/dL AST 16 (0-34) U/L ALT 24 (10-49) U/L Alkaline Phosphatase 129 H (46-116) U/L Albumin 5.1 H 4.3 D 4.1 (3.5-5.0) gm/dL Urine 11/08/24 Range/Units 06:00 Urine Color Lt-Yellow (Lt Yel-Yel) Urine Clarity Clear (Clear/Hazy) Urine pH 5.5 (5.0-7.0) Ur Specific [place] 1.020 (1.001-1.035) Urine Protein Negative (Neg - Trace) Urine Glucose (UA) 4+ A (Negative) ABG Interpretation ABG results: 11/08/24 11/08/24 11/08/24 05:40 10:02 12:42 VBG pH 7.18 L 7.36 7.40 VBG pCO2 31 L 22 L 31 L VBG pO2 45 44 47 VBG Base Excess -16 L -11 L -4 L Quality Measures Quality Measures none Medications Home Medications and Allergies Home Medications ?Medication ?Instructions ?Recorded ?Confirmed ?Type lisinopril 10 mg tablet 10 mg PO DAILY 01/26/18 11/08/24 History semaglutide 1 mg/dose (4 mg/3 mL) 1 mg subcut QWEEK 11/08/24 11/08/24 History subcutaneous pen injector (Ozempic) Allergies Allergy/AdvReac Type Severity Reaction Status Date / Time bee venom protein (honey bee) Allergy Mild Anaphylaxis Verified 11/08/24 04:23 strawberry Allergy Mild Anaphylaxis Verified 11/08/24 04:23 Visit Medications Acetaminophen (Acetaminophen 325 Mg Tablet) 650 mg PO Q6H PRN PRN Reason: PAIN SCALE 1-3 (mild Stop: 12/08/24 07:04 Dextrose (Dextrose 50%-Water Inj 50 Ml Syringe) 25 ml IV PRNMRX1 PRN PRN Reason: Blood Sugar - Low Heparin Sodium (Porcine) (Heparin Sod Inj 5000 Unit/Ml Vial) 5,000 unit SC Q8HR JENNYFER Stop: 11/22/24 07:14 Last Admin: 11/08/24 13:27 Dose: Not Given Potassium Chloride (Kcl Ivpb) 10 meq in 100 mls @ 100 mls/hr IV .Q1H PRN PRN Reason: IF POTASSIUM LESS THAN 3.3 Stop: 12/08/24 06:12 Magnesium Sulfate (Magnesium Sulfate Ivpb) 2 gm in 50 mls @ 25 mls/hr IV .Q2H PRN PRN Reason: PER DKA PROTOCOL Stop: 12/08/24 06:12 Insulin Human Regular 100 unit (/ IV Miscellaneous Supplies) 100 mls @ 10.206 mls/hr IV .Q9H48M PRN; Protocol PRN Reason: PER PROTOCOL Stop: 12/08/24 06:12 Last Titration: 11/08/24 14:00 Dose: 0.05 unit/kg/hr, 5.103 mls/hr Dextrose/Lactated Ringer's (D5-Lr) 1,000 mls @ 250 mls/hr IV .Q4H PRN PRN Reason: PER PROTOCOL Stop: 12/08/24 06:12 Lactated Ringer's (Lactated Ringers) 1,000 mls @ 250 mls/hr IV .Q4H PRN PRN Reason: PER PROTOCOL Stop: 11/09/24 06:12 Last Infusion: 11/08/24 11:29 Dose: 0 mls/hr Potassium Chloride 20 meq/ (Lactated Ringer's) 1,010 mls @ 250 mls/hr IV .Q4H3M PRN PRN Reason: K LEVEL 3.3 TO 5.3mM/L Stop: 12/08/24 06:12 Last Infusion: 11/08/24 13:19 Dose: 0 mls/hr Potassium Chloride 40 meq/ (Lactated Ringer's) 1,020 mls @ 250 mls/hr IV .Q4H5M PRN PRN Reason: K LEVEL < 3.3 mM/L Stop: 12/08/24 06:12 Potassium Chloride 40 meq/ (Dextrose/Lactated Ringer's) 1,020 mls @ 250 mls/hr IV .Q4H5M PRN PRN Reason: K LEVEL < 3.3mM/L Stop: 12/08/24 06:12 Potassium Chloride (Kcl Ivpb) 10 meq in 100 mls @ 50 mls/hr IV PRN PRN PRN Reason: K LEVEL 3.3 to 5.3 & BG > 200 Stop: 12/08/24 06:12 Last Infusion: 11/08/24 08:32 Dose: Infused Potassium Phosphate (Pot Phos 15 Mmol In Ns 250 Ml) 15 mmol in 250 mls @ 62.5 mls/hr IV PRN PRN PRN Reason: Phosphate <= 1mg/dL Stop: 12/08/24 06:12 Sodium Phosphate 15 mmol/ (Sodium Chloride) 255 mls @ 62.5 mls/hr IV .Q4H5M PRN PRN Reason: Phosphate <= 1mg/dL and K> than 5.3 Stop: 12/08/24 06:12 Potassium Chloride 20 meq/ (Dextrose/Lactated Ringer's) 1,010 mls @ 250 mls/hr IV .Q4H3M PRN PRN Reason: K LEVEL 3.3 TO 5.3 mM/L Stop: 12/08/24 12:06 Last Admin: 11/08/24 13:19 Dose: 250 mls/hr Morphine Sulfate (Morphine Sulf Inj 4 Mg/Ml Vial) 2 mg IVP Q2H PRN PRN Reason: PAIN SCALE 7-10 (Severe Stop: 11/13/24 07:04 Last Admin: 11/08/24 08:42 Dose: 2 mg Ondansetron HCl (Ondansetron Inj 2 Mg/Ml Inj 2 Ml) 4 mg IVP Q6H PRN; Protocol PRN Reason: NAUSEA OR VOMITING Stop: 12/08/24 07:04 Last Admin: 11/08/24 10:19 Dose: 4 mg Oxycodone/Acetaminophen (Oxycodone/Apap 5/325 Tablet) 1 tab PO Q6H PRN PRN Reason: PAIN SCALE 4-6 (Moderate Stop: 11/13/24 07:04 Last Admin: 11/08/24 10:29 Dose: 1 tab Pantoprazole Sodium (Pantoprazole Inj 40 Mg Vial) 40 mg IVP QDAY JENNYFER Stop: 12/08/24 11:14 Last Admin: 11/08/24 11:33 Dose: 40 mg Sodium Bicarbonate (Sodium Bicarb Inj 8.4% Syr 50 Ml Syringe) 50 ml IV Q4HR PRN PRN Reason: For ph <= to 7.0 Stop: 12/08/24 06:12 Discontinued Medications Sodium Chloride (Ns) 1,000 mls @ 999 mls/hr IV .Q1H1M ONE Stop: 11/08/24 05:52 Last Infusion: 11/08/24 06:04 Dose: Infused Sodium Chloride (Ns) 1,000 mls @ 999 mls/hr IV .Q1H1M ONE Stop: 11/08/24 06:54 Last Infusion: 11/08/24 07:03 Dose: Infused Lactated Ringer's (Lactated Ringers) 1,000 mls @ 999 mls/hr IV .Q1H1M ONE Stop: 11/08/24 07:13 Last Infusion: 11/08/24 07:30 Dose: Infused Potassium Cl/Dextrose/Lact Ringer's (Kcl 20 Meq/L In D5-Lr) 20 meq in 1,000 mls @ 250 mls/hr IV .Q4H PRN PRN Reason: K LEVEL 3.3 TO 5.3 mM/L Lactated Ringer's (Lactated Ringers) 1,000 mls @ 500 mls/hr IV Q2H JENNYFER Stop: 11/08/24 10:14 Last Admin: 11/08/24 08:54 Dose: 500 mls/hr Morphine Sulfate (Morphine Sulf Inj 4 Mg/Ml Vial) 4 mg IVP X1 ONE Stop: 11/08/24 04:53 Last Admin: 11/08/24 05:00 Dose: 4 mg Ondansetron HCl (Ondansetron Inj 2 Mg/Ml Inj 2 Ml) 4 mg IVP X1 ONE; Protocol Stop: 11/08/24 04:53 Last Admin: 11/08/24 05:01 Dose: 4 mg Ondansetron HCl (Ondansetron Inj 2 Mg/Ml Inj 2 Ml) 4 mg IV X1 ONE; Protocol Stop: 11/08/24 06:14 Last Admin: 11/08/24 06:35 Dose: 4 mg Assessment & Plan Plan Bandar Pyle is a 43-year-old male with past medical history of insulin-dependent type 2 diabetes mellitus, history of severe hypertriglyceridemia (reported to be familial) and necrotizing pancreatitis requiring plasmapheresis, acute kidney injury requiring temporary hemodialysis in the past (followed Dr. Roper), dyslipidemia, and hypertension who presented to [facility] ED in the applications administrator of 11/08/2024 with a chief complaint of significant abdominal pain with nausea and vomiting. Patient was admitted to the ICU for work-up and management of DKA (with associated high anion gap metabolic acidosis and DANILO) requiring insulin drip. NEURO No active problems CARDIO No active problems PULM No active problems GI #Acute pancreatitis r/o #Severe nausea/vomiting #Severe abdominal pain (primarily epigastric and umbilical) In the setting of normal lipase levels, currently suspect patient's pain is more likely 2/2 processes related to DKA rather than acute pancreatitis Suspicious findings for possible gallstones seen of CT CAP -Order CT abdomen if pain and symptoms do not resolve after resolution of DKA NEPHRO #DANILO BUN 27, creatinine 2.4, GFR 33 Likely prerenal, IV fluids per DKA protocol URO No active problems HEME #Leukocytosis #Polycythemia Both are likely 2/2 hemoconcentration as well as being reactive in nature ENDO #Moderate DKA #High anion gap metabolic acidosis #Lactic acidosis, elevated beta-hydroxybutyrate Patient's beta hydroxybutyrate 6.2, VBG pH 7.18, bicarb less than 10, blood glucose 631, lactate 6.1 Urine ketones positive -Started on insulin drip, continue until 2 consecutive normal anion gap levels achieved along with blood glucose below 200 -DKA protocol -Change to subQ insulin once DKA resolves, make sure patient leaves with the [employer] Maude (this sign writer letterer or painter was personally approached by dietitian to plead that the medicine team not forget to discharge patient with it as he really wants it) #Dyslipidemia History of elevated triglycerides in the past Triglyceride 181, cholesterol 260, LDL 192, HDL 32 -Insulin drip for now ID No active problems MSK No active problems SKIN No active problems Disposition: DVT prophylaxis: SC Heparin 5,000 U q8HR GI prophylaxis: IV Protonix 40 mg qD Diet: NPO Cid: None Lines: Peripheral IV Antibiotics: None CODE STATUS: FULL Patient plan of care was discussed with the attending clerk carrier, Dr. Bennett. Louie Toledo DO Internal Medicine, PGY-1 Attending Provider Attestation/Addendum Patient seen and examined with above resident, Louie Toledo DO. I agree with the findings, assessment, and plan of care as document except for any differences below. Patient admitted with diabetic ketoacidosis, and no evidence of precipitating ischemic or infectious etiology. Patient is on Ozempic as well as insulin regimen. His diet has been modified with significant intermittent fasting for prolonged periods of time and poor p.o. intake due to secondary effects of GLP-1 inhibitor. Patient starting to feel better after volume resuscitation and initiation of IV insulin. Will aggressively replace electrolytes as needed with serial labs being monitored closely in the ICU. Patient would like to be able to be transition back to home regimen towards the end of the day today. Can be downgraded to medicine overnight after 2 BMPs ensure that the patient has had close And normalization of his serum bicarbonate. Total critical care time: I personally spent 35 minutes for review of physiologic parameters, directing plan of care throughout today, and counseling the patient at bedside. This is exclusive of time spent teaching of staff performing separate billable procedures. Patient remains at significant risk for further morbidity and mortality warranting close monitoring care only available in ICU. Critical care services required for diabetic ketoacidosis and prerenal acute renal failure.
--- NOTE | 2024-11-08 16:03 | PC.DIETICIAN ---
Dietitian note; [employer] (CGM) was provided, pt will need DME order at discharge Thank you
[2024-11-08 16:40] LABS: Lactate (Lactic Acid) 1.3 mMol/L (0.4-2.0)
[2024-11-08 17:45] LABS: Base Excess, Venous 1 (-3-3); O2 Saturation, Venous 91 % (96-97); PCO2, Venous 30 mmHg (36-56); PO2, Venous 54 mmHg (15-58); pH, Venous 7.49 (7.33-7.66)
[2024-11-08 18:13] LABS: Albumin, Serum 3.6 gm/dL (3.5-5.0); Anion Gap 13 (7-16); BUN/Creatinine Ratio 10 Ratio (12-20); Blood Urea Nitrogen 13 mg/dL (9-23); Calcium 9.5 mg/dL (8.3-10.6); Calcium (Corrected) 9.8 mg/dL (8.5-10.1); Carbon Dioxide 19.2 mMol/L (20.0-31.0); Chloride 105 mMol/L (98-107); Creatinine (Component) 1.3 mg/dL (0.6-1.3); Estimated Creatinine Clearance 89.6 mL/min (>60); Glucose 178 mg/dL (74-106); Magnesium 1.7 mg/dL (1.6-2.6); Osmolality,Calculated 277 (275-295); Phosphorous 1.5 mg/dL (2.4-5.1); Potassium 4.7 mMol/L (3.4-5.1); Sodium 137 mMol/L (136-145); eGFR > 60 See Note
[2024-11-08 20:58] LABS: Lactate (Lactic Acid) 1.2 mMol/L (0.4-2.0)
[2024-11-08 21:18] LABS: Albumin, Serum 3.7 gm/dL (3.5-5.0); Anion Gap 11 (7-16); BUN/Creatinine Ratio 17 Ratio (12-20); Blood Urea Nitrogen 22 mg/dL (9-23); Calcium 9.5 mg/dL (8.3-10.6); Calcium (Corrected) 9.7 mg/dL (8.5-10.1); Carbon Dioxide 25.4 mMol/L (20.0-31.0); Chloride 104 mMol/L (98-107); Creatinine (Component) 1.3 mg/dL (0.6-1.3); Estimated Creatinine Clearance 89.6 mL/min (>60); Glucose 151 mg/dL (74-106); Magnesium 1.7 mg/dL (1.6-2.6); Osmolality,Calculated 285 (275-295); Phosphorous 1.7 mg/dL (2.4-5.1); Potassium 4.4 mMol/L (3.4-5.1); Sodium 140 mMol/L (136-145); eGFR > 60 See Note
[2024-11-08] MEDS: INSULIN REG 100 UNITS/100 ML 100 UNIT in PRE-MIXED 1 BAG IV (23:03)
[2024-11-08] MEDS: INSULIN DEGLUDEC 5 UNIT/0.05 ML (PER 5 UNITS) 20 UNIT SC (23:07)
[2024-11-09] VITALS (8 sets, daily range): BP systolic 107–151; BP diastolic 71–88; PULSE 69–95; RESP 15–19; TEMP 36.2–37.1; O2SAT 96–99; BMI 32.3
[2024-11-09 00:36] LABS: Lactate (Lactic Acid) 0.9 mMol/L (0.4-2.0)
--- NOTE | 2024-11-09 00:43 | EVENTNT_ITS ---
Documentation for date of: 11/09/24 Event Note Event Note: This is 43 year-old male with admitted to ICU on 11/08/2024 acute pancreatitis, DKA and DANILO. He suspected an accidental extra dose of OZEMPIC may have contributed. Past medical history includes insulin-dependent type 2 diabetes, f amilial hypertriglyceridemia, necrotizing pancreatitis, prior DANILO requiring dialysis, dyslipidemia, and hypertension. His current abdominal pain was similar to prior episodes of pancreatitis. In the ED, he was found to be in moderate diabetic ketoacidosis (DKA), with marked hyperglycemia, low pH, low bicarbonate, high anion gap, positive ketones, elevated beta-hydroxybutyrate, and elevated lactate. Kidney function was impaired, likely due to dehydration, but resolved with IVFs. Lipase was normal, and imaging did not support acute pancreatitis, though CT noted possible hepatocellular disease and a small non-obstructing renal stone. Labs showed leukocytosis and hemoconcentration. In ICU<, he was started on DKA protocol with IV fluids (NORMAL SALINE and LACTATED RINGER?S), INSULIN drip, ONDANSETRON for nausea, and MORPHINE for pain. His metabolic status improved with closure of the anion gap and normalization of bicarbonate. Once stable, he was transitioned to subcutaneous insulin therapy. As of the latest update, his current insulin regimen includes: INSULIN DEGLUDEC 20 units daily INSULIN LISPRO 4 units three times daily with meals Remained stable and is tolerating therapy. He is motivated to continue glucose monitoring and has requested discharge with a FREESTYLE MAE device. No antibiotics were required. GI symptoms are being monitored, and further imaging may be considered if abdominal pain persists after DKA resolution. Case was discussed with attending physician, Dr. Pryor. Min Galvan, PGY II This document was transcribed using voice recognition technology. Minor inaccuracies may be present.
[2024-11-09 00:54] LABS: Albumin, Serum 3.5 gm/dL (3.5-5.0); Anion Gap 10 (7-16); BUN/Creatinine Ratio 20 Ratio (12-20); Blood Urea Nitrogen 24 mg/dL (9-23); Calcium 8.8 mg/dL (8.3-10.6); Calcium (Corrected) 9.2 mg/dL (8.5-10.1); Carbon Dioxide 24.4 mMol/L (20.0-31.0); Chloride 105 mMol/L (98-107); Creatinine (Component) 1.2 mg/dL (0.6-1.3); Estimated Creatinine Clearance 97.1 mL/min (>60); Glucose 177 mg/dL (74-106); Magnesium 1.6 mg/dL (1.6-2.6); Osmolality,Calculated 285 (275-295); Phosphorous 1.4 mg/dL (2.4-5.1); Potassium 4.0 mMol/L (3.4-5.1); Sodium 139 mMol/L (136-145); eGFR > 60 See Note
[2024-11-09] MEDS: ONDANSETRON INJ 2 MG/ML INJ 2 ML 4 MG IVP (05:33)
[2024-11-09] MEDS: HEPARIN SOD INJ 5000 UNIT/ML VIAL SC (05:36)
[2024-11-09] MEDS: INSULIN LISPRO (AdmeLOG) 1 UNIT/0.01 ML UNIT 4 UNIT SC ×2 (08:05→12:02)
[2024-11-09] MEDS: INSULIN LISPRO (AdmeLOG) 1 UNIT/0.01 ML UNIT SC ×2 (08:06→12:02)
[2024-11-09 08:35] LABS: Lactate (Lactic Acid) 1.4 mMol/L (0.4-2.0)
[2024-11-09 08:39] LABS: Basophils # (Auto) 0.0 Thou/mm3 (0.0-0.2); Basophils % (Auto) 0 % (0-2.5); Eosinophils # (Auto) 0.0 Thou/mm3 (0.0-0.5); Eosinophils % (Auto) 0 % (0-10); Hematocrit 39.8 % (41.0-53.0); Hemoglobin 14.0 g/dL (13.5-16.0); Immature Granulocytes Auto 0.02 Thou/mm3 (0.00-0.00); Lymphocytes # (Auto) 1.2 Thou/mm3 (1.0-4.8); Lymphocytes % (Auto) 15 % (10-50); Mean Corpuscular HGB Conc 35.2 g/dl (31.0-37.0); Mean Corpuscular Hemoglobin 30.9 pg (25.0-35.0); Mean Corpuscular Volume 88 fL (80-100); Monocytes # (Auto) 0.8 Thou/mm3 (0.0-0.8); Monocytes % (Auto) 10 % (0-12); Neutrophils # (Auto) 6.0 Thou/mm3 (1.8-7.7); Neutrophils % (Auto) 75 % (37-80); Nucleated Red Blood Cell # 0.00 Thou/mm3 (0.00-0.00); Nucleated Red Blood Cell % 0 /100 WBC (0); Platelet Count 190 Thou/mm3 (140-440); RDW Standard Deviation 39.8 fL (35.1-43.9); Red Blood Count 4.53 Miln/mm3 (4.50-5.90); White Blood Count 8.1 Thou/mm3 (3.8-10.6)
[2024-11-09 08:59] LABS: Albumin, Serum 3.8 gm/dL (3.5-5.0); Anion Gap 11 (7-16); BUN/Creatinine Ratio 14 Ratio (12-20); Blood Urea Nitrogen 15 mg/dL (9-23); Calcium 9.1 mg/dL (8.3-10.6); Calcium (Corrected) 9.3 mg/dL (8.5-10.1); Carbon Dioxide 26.5 mMol/L (20.0-31.0); Chloride 101 mMol/L (98-107); Creatinine (Component) 1.1 mg/dL (0.6-1.3); Estimated Creatinine Clearance 109.0 mL/min (>60); Glucose 211 mg/dL (74-106); Magnesium 1.7 mg/dL (1.6-2.6); Osmolality,Calculated 282 (275-295); Phosphorous 1.3 mg/dL (2.4-5.1); Potassium 4.5 mMol/L (3.4-5.1); Sodium 138 mMol/L (136-145); eGFR > 60 See Note
[2024-11-09] MEDS: NAPH,KPH MBDB 1 PACKET (1.5 GM) 2 PACKET PO (11:34)
[2024-11-09 12:24] LABS: Lactate (Lactic Acid) 1.2 mMol/L (0.4-2.0)
[2024-11-09 12:53] LABS: Albumin, Serum 3.9 gm/dL (3.5-5.0); Anion Gap 10 (7-16); BUN/Creatinine Ratio 12 Ratio (12-20); Blood Urea Nitrogen 13 mg/dL (9-23); Calcium 9.3 mg/dL (8.3-10.6); Calcium (Corrected) 9.4 mg/dL (8.5-10.1); Carbon Dioxide 28.3 mMol/L (20.0-31.0); Chloride 101 mMol/L (98-107); Creatinine (Component) 1.1 mg/dL (0.6-1.3); Estimated Creatinine Clearance 109.0 mL/min (>60); Glucose 168 mg/dL (74-106); Magnesium 1.8 mg/dL (1.6-2.6); Osmolality,Calculated 281 (275-295); Phosphorous 1.6 mg/dL (2.4-5.1); Potassium 4.2 mMol/L (3.4-5.1); Sodium 139 mMol/L (136-145); eGFR > 60 See Note
[2024-11-09 13:04] LABS: Beta Hydroxybutyrate 0.7 mmol/L (<0.6)
--- NOTE | 2024-11-09 13:34 | ESDS_ITS ---
<Statement entered by Beni Murillo MD - 11/13/24 14:17> I reviewed above note and agree with findings and plans. I have also personally examined the patient with medicine team and went over assessment and plan with medical team including customer operations intern and resident physician. <Statement entered by Kunal Rowe MD - 11/09/24 15:07> Patient was examined with the team including attending physician. Note reviewed, I agree with the discharge plan as documented. - Kunal Rowe MD PGY 3 Disclaimer: The document may contain phonetic/typographic errors due to voice recognition software. Planned Discharge Date 11/09/24 DS: Providers Provider Date of admission: 11/08/24 07:05 Primary care physician: Boni Vasquez MD Admitting Provider: Vidal Bennett MD Attending Provider on Admission: Waldemar Pryor MD Consults: 11/08/24 06:14 Referral Registered Dietitian Routine Comment: Attending Provider on DC: Beni Murillo MD Discharging Provider: PRINCESS Rasheed DS: Diagnosis Problem List Completed Was Problem List Reviewed/Reconciled?: Yes Hospital Course Hospital Course Hospital course: Bandar Pyle is a 43-year-old male with past medical history of insulin- dependent type 2 diabetes mellitus, history of severe hypertriglyceridemia (reported to be familial) and necrotizing pancreatitis requiring plasmapheresis nine years ago, acute kidney injury requiring temporary hemodialysis in the past (followed Dr. Roper), dyslipidemia, and hypertension who presented to [facility] ED in the pediatric psychiatrist of 11/08/2024 with a chief complaint of significant abdominal pain with nausea and vomiting. Patient reported to have taken an extra dose of Ozempic accidentally the day before. Vitals at presentation showed hypertension 146/93 and tachycardia 135 otherwise unremarkable labs significant for acidotic pH 7.18, pCO2 31, PaO2 45, O2 satu ration 73%. CMP showed sodium 129, carbon dioxide 10, anion gap 36, creatinine 2.4, eGFR 33 and blood glucose 631, lactic acid elevated to 6.1 and urine drug screen was positive for opiates. Lipase was normal, and imaging did not support acute pancreatitis. Labs showed leukocytosis and hemoconcentration. Patient was admitted to the ICU for work-up and management of DKA (with associated high anio n gap metabolic acidosis and DANILO) requiring insulin drip. In ICU he was started on DKA protocol with IV fluids (NORMAL SALINE and LACTATED RINGER?S), INSULIN drip, ONDANSETRON for nausea, and MORPHINE for pain. His metabolic status improved with closure of the anion gap and normalization of bicarbonate. Once stable, he was transitioned to subcutaneous insulin therapy with INSULIN DEGLUDEC 20 units daily and INSULIN LISPRO 4 units three times daily with meals Remained stable and tolerating therapy. He is motivated to continue glucose monitoring and has requested discharge with a FREESTYLE MAE device. No antibiotics were required. At the point of discharge, patient is medically stable and deemed safe to return to his/her previous state of living. Imaging: EKG showed sinus tachycardia with short LA interval and tall T waves suggesting hyperkalemia. Chest x-ray was unremarkable. CT CAP showed findings suspicious for primary hepatocellular disease and 2 mm nonobstructing left renal calculus but was otherwise negative. Venous Doppler study was negative for deep vein thrombosis. Admission Diagnoses: #Acute pancreatitis r/o #Severe nausea/vomiting #Severe abdominal pain (primarily epigastric and umbilical) #DANILO #Leukocytosis #Polycythemia #Moderate DKA #High anion gap metabolic acidosis #Lactic acidosis, elevated beta-hydroxybutyrate #Dyslipidemia Discharge Instructions: - Follow up with PCP within 1 week from discharge - Your insulin has been changed to Degludec (long acting) 20 units at bedtime - Take 5 units of Lispro (short acting) with meals - You are also on a sliding scale, take additional insulin as per your monitor. - Avoid taking NSAIDs like Ibuprofen as they may increase your risk for gastric ulcers and worsen high pressure. - Return to ED if symptoms worsen. This case was discussed with my attending physician, Dr. Murillo, and senior resident, Dr Rowe. Brent Messina, DO PGY I Status at Discharge Cognitive/behavioral status at discharge: stable Overall status at discharge: patient is back to baseline Time Spent with Patient Time attestation: Total time spent providing and/or coordinating discharge services: more than 50% of patient hospital stay Time spent: Greater than 30 minutes Exam Vital Signs Temp Pulse Resp BP Pulse Ox O2 Del Method 97.1 F 70 18 126/87 H 98 Room Air 11/09/24 11:40 11/09/24 12:00 11/09/24 11:40 11/09/24 11:40 11/09/24 11:40 11/09/24 11:40 Narrative Exam General: Awake and in no acute distress. Conversational and non-toxic appearing. HEENT: Normocephalic, atraumatic, mucous membranes dry. Heart: RRR, no murmurs. Lungs: Clear to auscultation with no wheezing or crackles. Abdomen: Soft, nondistended, epigastric and mid lower abdomen tender, positive bowel sounds. ?No guarding or rebound tenderness. Neurologic: Alert and oriented x3, no gross neurological deficit, and patient able to move all 4 extremities. Extremities: No edema noted in bilateral lower legs Skin: No rash or ecchymoses. Discharge Plan Plan Patient Disposition: HOME (Self Care) Patient condition on transfer: Stable Care Plan Goals: - Follow up with PCP within 1 week from discharge - Your insulin has been changed to Degludec (long acting) 20 units at bedtime - Take 5 units of Lispro (short acting) with meals - You are also on a sliding scale, take additional insulin as per your monitor. - Avoid taking NSAIDs like Ibuprofen as they may increase your risk for gastric ulcers and worsen blood pressure. - Return to ED if symptoms worsen Prescriptions/Referrals Prescriptions/Med Rec: New insulin degludec-liraglutide 100 unit-3.6 mg /mL (3 mL) insulin pen 25 unit subcut HS Qty: 15 1RF insulin lispro 100 unit/mL insulin pen 5 unit subcut TIDWMEAL Qty: 15 1RF Continued atenolol 25 MG tablet 25 mg PO QAM Qty: 30 0RF lisinopril 10 mg Tablet 10 mg PO DAILY Changed insulin lispro [Humalog U-100 Insulin] 100 U/ML solution 0 sliding scale dose Sub-Q ACHS Qty: 3 0RF Held Ozempic 1 mg/dose (4 mg/3 mL) pen injector 1 mg subcut QWEEK Hold Instructions: Resume on 11/23/24. HOLD until follow up with PCP Discontinued gemfibrozil 600 MG tablet 600 mg PO BID Qty: 60 0RF insulin glargine [Basaglar KwikPen U-100 Insulin] 100 unit/mL (3 mL) insulin pen 15 unit SC QDAY Qty: 3 0RF Rx Instructions: Please provide with corresponding caps and needles. ibuprofen 800 mg tablet 800 mg PO TID PRN (Reason: pain) Qty: 30 0RF Referrals: Boni Vasquez MD [Primary Care Provider, Family Practice] Patient/Caregiver Discharge Instructions Discharge Activity: as per physical therapy Education Materials: Low-Salt Choices, Anatomy of the Digestive System, Pancreatitis Acute Dc, Glucose Check Steps Print Language: Afghan Stand Alone Forms: Carlita Award Info., Patient Portal Info Letter Discharge Order Discharge Orders: Discharge (Routine); Ordered 11/09/24 Ordered By: Kunal Rowe Quality Discharge Quality Measures VTE prophylaxis
== END 2024-11-09 13:20 | disposition home or self-care (01) | DRG 637 ==
LOC: SERX 06:59 → SERHOLD 07:26 → S2SX 10:09 → S3NX 11-09 03:17
PROVIDERS: Emergency Medicine; Student in an Organized Health Care Education/Training Program; Admitting Provider Internal Medicine Critical Care Medicine; Emergency Provider Emergency Medicine; PCP Family Medicine; Visit Provider Student in an Organized Health Care Education/Training Program
DX: E11.10 Type 2 diabetes mellitus with ketoacidosis without coma (principal); K85.90 Acute pancreatitis without necrosis or infection, unspecified; N17.9 Acute kidney failure, unspecified; K86.1 Other chronic pancreatitis; I10 Essential (primary) hypertension; D75.1 Secondary polycythemia; E78.1 Pure hyperglyceridemia
CPT/HCPCS: 36415; 71045; 71250; 74176; 80053; 80061; 80069; 80307; 81001; 82010; 82803; 83036; 83605; 83690; 83735; 84100; 85025; 85610; 85730; 87040; 87081; 87811; 93005; 93970; 96361; 96365; 96366; 96372; 96374; 96375; 96376; 99285; J1644; J1815; J2270; J2405; J2470; J3480; J7030; J7120; J7121; A9270